=== PATIENT | female | born 1955 | race Caucasian/White ===

== ENCOUNTER 2018-05-23 20:18 | Emergency (ER) | payer MEDICARE, OTHER ==
[~2018-05-23] VITALS: Ht 172.7 cm; Wt 112.5 kg
[~2018-05-23 20:18] MED LIST: ABILIFY15 MG PO; AMBIEN10 MG PO; ASPIRIN325 M2 PO; ATORVASTATIN CA10 MG PO; BENTYL20 MG; BROMFED DM COU118 ML PO; CIPRO500 MG PO; ECOTRIN325 MG PO; EFFEXOR XR150 MG PO; FLEXERIL5 MG; GEODON20 M1 PO; HYDROCHLOROTH12.5 M1 PO; LAMICTAL100 MG PO; LAMICTAL200 MG; LORTAB 51 EA PO; METOPROLOL SUCC50 MG PO; MIRAPEX0.25 MG; NITROGLYCERIN0.4 MG SL; PANTOPRAZOLE SO40 MG PO; PEPCID20 MG PO; TIZANIDINE HCL4 MG PO; TOPIRAMATE100 MG; ULTRAM50 MG PO; VENTOLIN HFA18 GM INH; VICODIN 5-5001 EACH PO; XANAX1 MG PO; XANAX2 MG; XENICAL120 MG PO; Z.0.AMBIEN CR12.5 MG PO; Z.0.FLEXERIL5 MG PO; Z.0.METOPROLOL TART5 PO; Z.0.MIRAPEX0.25 MG PO; Z.0.PLAVIX75 MG PO; Z.0.PROMETHAZINE HC2 PO; Z.0.XANAX2 MG PO; Z.0.ZOCOR40 MG PO; ZOCOR20 MG PO
--- OUTSIDE RECORDS SUMMARY | 2018-05-23 20:21 | XMS REPORT ---
Author Author [facility] Address Unknown Phone Unavailable Care Team Providers Care Mechanical Engineering Professor Name Role Phone Unavailable Unavailable Payers Payer Name Policy Type Policy Number Effective Date Expiration Date Problems This patient has no known problems. Allergies, Adverse Reactions, Alerts Allergy Name Allergy Type Status Severity Reaction(s) Onset Date Inactive Date Treating Clinician Comments adhesive DA Active U 2017-10-18 00:00:00 hydromorphone DA Active U 2017-10-18 00:00:00 Medications This patient has no known medications.
--- OUTSIDE RECORDS SUMMARY | 2018-05-23 20:21 | XMS REPORT | Clinical Summary ---
Author Author [facility] Address Unknown Phone Unavailable Care Team Providers Care Cleat Maker Name Role Phone Omid Herbert MD PCP Allergies Comments Active Allergy Reactions Severity Noted Date Hydromorphone 06/24/2016 Medications End Date Status Medication Sig Dispensed Refills Start Date Active HYDROcodone-acetaminophen Take 1 tablet 0 (NORCO) 10-325 mg per by mouth tablet every 6 (six) hours as needed for moderate pain. Active cyclobenzaprine Take 10 mg by 0 (FLEXERIL) 10 mg tablet mouth 3 (three) times a day as needed for muscle spasms. Active Problems Problem Noted Date Acute left-sided low back pain 08/12/2016 Myositis 08/12/2016 Family History Medical History Relation Name Comments Heart failure Father Alzheimer's disease Mother Relation Name Status Comments Father Mother Social History Date Tobacco Use Types Packs/Day Years Used Current Every Day Smoker Alcohol Use Drinks/Week oz/Week Comments Yes Sex Assigned at Date Recorded Not on file Industry Job Start Date Occupation Not on file Not on file Not on file Travel End Travel History Travel Start No recent travel history available. Last Filed Vital Signs Not on file Plan of Treatment Health Maintenance Due Date Last Done Comments CERVICAL CANCER SCREENING 1977 BREAST CANCER SCREENING 2006 COLON CANCER SCREENING 2006 SHINGRIX VACCINE (1 of 2) 2006 ZOSTER VACCINE 2016 INFLUENZA VACCINE 02/03/2018 Results Not on fileafter 05/22/2017 Insurance Payer Benefit Subscriber ID Type Phone Address Plan / Group MEDICARE MEDICARE xxxxxxxxxx Medicare [place], [place] PART A AND B Advance Directives Patient has advance care planning documents on file. For more information, margi ramos contact: Óscar Pettit [phone] [place] [address]
--- NOTE | 2018-05-23 22:38 | Diagnostic Imaging Report ---
EXAM: KNEE RIGHT THREE VIEWS, AP, lateral and oblique INDICATION: Increasing pain in right knee, no history of trauma COMPARISON: None FINDINGS: BONES: No acute fractures. Superior patellar enthesophyte. JOINTS: No malalignment. Mild patellofemoral joint space narrowing. SOFT TISSUES: Small suprapatellar joint effusion. IMPRESSION: Mild degenerative changes and small suprapatellar effusion. Signed by: Dr. Marcela Jacobo M.D. on 05/23/2018 10:34 PM
== END 2018-05-23 22:57 | disposition home or self-care (01) ==
LOC: ER 20:18
DX: M25.561 Pain in right knee (principal); M17.11 Unilateral primary osteoarthritis, right knee; E78.00 Pure hypercholesterolemia, unspecified; F41.9 Anxiety disorder, unspecified; F32.9 Major depressive disorder, single episode, unspecified; Z95.5 Presence of coronary angioplasty implant and graft; F17.210 Nicotine dependence, cigarettes, uncomplicated
CPT/HCPCS: 99283

== ENCOUNTER 2020-03-10 15:58 | Emergency (ER) | payer OTHER ==
[~2020-03-10] VITALS: Ht 172.7 cm; Wt 112.5 kg
--- NOTE | 2020-03-10 17:02 | Emergency Department Note ---
History of Present Illnes History of Present Illness Chief Complaint: General Medicine Complaints History of Present Illness This is a 64 year old female Pt states she was asleep and rolled out of bed hitting her "entire right side." Pt states she hurts, "everywhere." Pt states she felt dizzy after hitting her entire right side. Pt [id number]. Ambulatory steady gait into triage. No neuro defecits at triage. Pt moving all extremities. No visible injury at triage time. Pt states she does take plavix, but has not been complaint not taking for last several days. Pt very very converse in triage. Pt states she took 2 of her [place] 10mg tab and Motrin 400mg, did not help. Historian: Patient Arrival Mode: Car Finisher Polisher Required: No Onset (how long ago): hour(s) (5 HRS AGO) Location: RIGHT SIDE OF HEAD Quality: NO PAIN BUT THINKS SHE FEELS A BUMP Radiation: Reports non-radiation Severity: mild Onset quality: sudden Progression: resolved Context: Denies recent illness Relieving factors: none Exacerbating factors: none Associated symptoms: Reports denies other symptoms Past Medical/Family History Physician Review I have reviewed the patient's past medical and family history. Any updates have been documented here. Past Medical History Recent Fever: No Clinical Suspicion of Infectio: No New/Unexplained Change in Ment: No Past Medical History: Hypertension, CAD, Anxiety, Depression, GERD, Hyp erlipedemia, DVT/PE Other Medical History: SMOKING 1PPD HIATAL HERNIA GASTRITIS GASTRIC ULCER Past Surgical History: PCI, Hernia Repair, Back Surgery Other Surgery: abdominal hernia laminectomy cardiac stents Social History Smoking Cessation: Unknown if ever smoked Counseling Performed: No Alcohol Use: None Any Illegal Drug Use: No TB Exposure/Symptoms: No Physically hurt or threatened: No Family History Family history of heart diseas: No Other Last Tetanus: 2011 Any Pre-Existing Lines (PICC,: No Review of Systems Review of Systems Constitutional: Reports no symptoms EENTM: Reports no symptoms Cardiovascular: Reports no symptoms Respiratory: Reports no symptoms Gastrointestinal: Reports no symptoms Genitourinary: Reports no symptoms Musculoskeletal: Reports as per HPI Integumentary: Reports no symptoms Neurological: Reports no symptoms Psychological: Reports no symptoms Endocrine: Reports no symptoms Hematological/Lymphatic: Reports no symptoms Physical Exam Related Data Allergies: Coded Allergies: hydromorphone HCl (Verified Allergy, Intermediate, RASH, 07/17/15) Triage Vital Signs Vital Signs Date Time Temp Pulse Resp B/P (MAP) Pulse Ox O2 Delivery O2 Flow Rate FiO2 03/10/20 16:04 97.4 90 18 145/93 99 Room Air Vital signs reviewed: Yes Physical Exam CONSTITUTIONAL Constitutional: Present well-developed, Present well-nourished HENT HENT: Present normocephalic, Present atraumatic, Present oropharynx clear/moist, Present nose normal HENT L/R: Present left ext ear normal, Present right ext ear normal EYES Eyes: Reports PERRL, Reports conjunctivae normal NECK Neck: Present ROM normal, Present supple, Present other (NO MIDLINE TENDERNESS); Absent carotid bruit PULMONARY Pulmonary: Present effort normal, Present breath sounds normal CARDIOVASCULAR Cardiovascular: Present regular rhythm, Present heart sounds normal, Present capillary refill normal, Present normal rate GASTROINTESTINAL Abdominal: Present soft, Present nontender, Present bowel sounds normal GENITOURINARY Genitourinary: Present exam deferred SKIN Skin: Present warm, Present dry MUSCULOSKELETAL Musculoskeletal: Present ROM normal NEUROLOGICAL Neurological: Present alert, Present oriented x 3, Present DTRs normal, Present no gross motor or sensory deficits; Absent cranial nerve deficit, Absent sensory deficit, Absent abnormal DTRs, Absent abnormal coordination, Absent abnormal gait, Absent weakness PSYCHOLOGICAL Psychological: Present mood/affect normal, Present judgement normal Results Laboratory Laboratory Laboratory Tests Test 03/10/20 16:10 Lab results reviewed: Yes Imaging Imaging results reviewed: Yes Assessment & Plan Medical Decision Making MDM ROLLED OUT OF BED, TAKES PLAVIX - CHECK CT BRAIN R/O CEREBRAL BLEEDING Reassessment Reassessment DC HOME, HEAD SHEET PRECAUTIONS, F/U PCP Assessment & Plan Final Impression: (1) Fall Depart Disposition: HOME, SELF-CARE Last Vital Signs Date Time Temp Pulse Resp B/P (MAP) Pulse Ox O2 Delivery O2 Flow Rate FiO2 03/10/20 16:26 98.6 91 17 145/63 97 Room Air Home Meds Reported Medications Atorvastatin Calcium (ATORVASTATIN CALCIUM) 10 Mg Tablet, 10 MG PO 2100, #30 TAB 07/17/15 Ciprofloxacin Hcl (CIPRO) 500 Mg Tablet, 500 MG PO Q12H, #30 TAB 07/17/15 D-Methorphan Hb/P-Epd Hcl/Bpm (BROMFED DM COUGH SYRUP) 118 Ml Syrup, 118 MG PO Q6H 1/12/16 Albuterol Sulfate (VENTOLIN HFA) 18 Gm Hfa.aer.ad, 18 INH PRN 07/17/15 Ziprasidone (GEODON) 20 Mg Powd, 20 MG PO HS, VIAL 04/18/14 Pantoprazole Sodium* (PROTONIX) 40 Mg Tablet.dr, 40 MG PO DAILY 09/28/13 Nitroglycerin (NITROGLYCERIN) 0.4 Mg Tab.subl, 0.4 MG SL UD PRN for PAIN 09/25/13 Aspirin (ECOTRIN) 325 Mg Tablet.dr, 325 MG PO DAILY 09/25/13 Tramadol Hcl (ULTRAM) 50 Mg Tablet, 50 MG PO Q6 PRN for PAIN 09/25/13 Famotidine (PEPCID) 20 Mg Tablet, 20 MG PO BID, #60 07/15/13 Zolpidem Tartrate (AMBIEN) 10 Mg Tablet, 10 MG PO HS 05/16/12 Hydrocodone Bit/Acetaminophen* (VICODIN 5-500 TABLET*) 1 Each Tablet, 5-500 MG PO Q4-6H PRN for PAIN 05/16/12 Metoprolol Succinate (METOPROLOL SUCCINATE) 50 Mg Tab.er.24h, 50 MG PO BID 05/16/12 Promethazine Hcl (Promethazine Hcl) 25 Mg Tablet, 25 MG PO BID PRN for VOMITING 04/21/12 Pramipexole Di-Hcl (Mirapex) 0.25 Mg Tablet, 0.25 MG PO HS 04/21/12 Alprazolam (Xanax) 2 Mg Tablet, 2 MG PO BID 04/21/12 Cyclobenzaprine Hcl (Flexeril) 5 Mg Tablet, 5 MG PO HS PRN for INSOMNIA 04/21/12 Clopidogrel Bisulfate (Plavix) 75 Mg Tablet, 75 MG PO DAILY 04/21/12 ABIGAIL ARMANDO MD Mar 10, 2020 17:02
[2020-03-10 17:03] LABS: CLARITY,URINE HAZY (CLEAR); COLOR,URINE YELLOW (YELLOW)
[2020-03-10 17:04] LABS: BACTERIA,URINE MANY /HPF; BILIRUBIN,URINE NEGATIVE (NEGATIVE); KETONES,URINE NEGATIVE (NEGATIVE); LEUKOCYTE ESTERASE ,URINE NEGATIVE (NEGATIVE); NITRITE,URINE NEGATIVE (NEGATIVE); PROTEIN,URINE DIPSTICK NEGATIVE (NEGATIVE); URINE UROBILINOGEN 0.2 mg/dL (0.2 - 1)
[2020-03-10 17:05] LABS: EPITHELIAL CELLS,URINE MANY /LPF; YEAST,URINE MODERATE
--- NOTE | 2020-03-10 17:39 | Diagnostic Imaging Report ---
Examination: CT BRAIN WO CONTRAST History:^N ^fall hit rt side ^[id number] ^[id number] Comparison studies:Head CT performed December 07, 2013. Technique: Axial images were obtained from the skull base to the vertex. Coronal and sagittal images reconstructed from the axial data. Dose modulation, iterative reconstruction, and/or weight based adjustment of the mA/kV was utilized to reduce the radiation dose to as low as reasonably achievable. Intravenous contrast: None Findings: Scalp: No abnormalities. Bones: No fractures, blastic or lytic lesions. Brain sulci: Appropriate for age. Ventricles: Normal in size and configuration. No hydrocephalus. Extra-axial space: No abnormalities. Parenchyma: No masses, hemorrhage, or acute or chronic cortical based vascular insults.. Sellar/suprasellar region: No abnormalities. Craniocervical junction: Patent foramen magnum. No Chiari one malformation. Incidental findings: None. Impression: No new or acute intracranial abnormalities when compared to prior head CT performed in 2013. Signed by: Dr. Emilee Ivey M.D. on 03/10/2020 5:36 PM
--- NOTE | 2020-03-10 17:45 | Diagnostic Imaging Report ---
Examination: CT CERVICAL SPINE WO HISTORY:Fall with neck injury. ^N ^fall hit rt side ^[id number] ^[id number] COMPARISON:Cervical spine MRI performed July 04, 2016. TECHNIQUE: Multidetector helical axial images were obtained without contrast from the foramen magnum to T1. Coronal and sagittal reformatted images were done. Bone and soft tissue windows were evaluated. Dose modulation, iterative reconstruction, and/or weight based adjustment of the mA/kV was utilized to reduce the radiation dose to as low as reasonably achievable. FINDINGS: Alignment:Normal alignment and lordosis. Vertebrae: Normal height and density. No acute fracture, infection or neoplasm. Disc space heights: Normal height. Caliber of spinal canal: Developmentally normal. Posterior fossa and craniocervical junction: Foramen magnum patent. No Chiari 1 malformation. Soft tissues: No abnormality. Degenerative changes: Anterior bridging osteophytes from C4 through C7. Mild degenerative spinal canal stenosis at C3-C4, C4-C5 and C6-7 and moderate degenerative spinal canal stenosis C5-C6 are better seen on prior cervical spine MRI performed July 04, 2016. Mild right and severe left neural foraminal narrowing at the due to uncovertebral and facet arthropathy at C3-C4. Mild bilateral neural foraminal narrowing at C4-C5 due to uncovertebral arthropathy. Severe bilateral neural foraminal narrowing at C5-C6 and C6-C7 due to diffuse disc osteophyte complex and bilateral uncovertebral arthropathy. Visualized lung apices: No abnormalities. IMPRESSION: 1. No acute abnormalities. 2. Degenerative changes of the cervical spine which are better appreciated on prior cervical spine MRI performed 2015.. Signed by: Dr. Emilee Ivey M.D. on 03/10/2020 5:41 PM
== END 2020-03-10 18:22 | disposition home or self-care (01) ==
LOC: ER 16:05
DX: S00.83XA Contusion of other part of head, initial encounter (principal); W06.XXXA Fall from bed, initial encounter; Y93.84 Activity, sleeping; Y92.003 Bedroom of unspecified non-institutional (private) residence as the place of occurrence of the external cause; I10 Essential (primary) hypertension; I25.10 Atherosclerotic heart disease of native coronary artery without angina pectoris; F41.9 Anxiety disorder, unspecified; E78.5 Hyperlipidemia, unspecified; K21.9 Gastro-esophageal reflux disease without esophagitis; Z79.01 Long term (current) use of anticoagulants; F17.210 Nicotine dependence, cigarettes, uncomplicated
CPT/HCPCS: 70450; 72125; 81001; 99284

== ENCOUNTER 2022-05-21 19:48 | Emergency (ER) | payer MEDICARE ==
[~2022-05-21] VITALS: Ht 172.7 cm; Wt 112.5 kg
[~2022-05-21 19:48] MED LIST changes: +AMOXICILLIN500 MG PO
[2022-05-21 20:28] LABS: BASOPHILS # (AUTO) 0.1 (0.0-0.1); BASOPHILS % 0.8 % (0.0-1.0); EOSINOPHILS # (AUTO) 0.3 (0.0-0.4); EOSINOPHILS % 4.2 % (0.0-6.0); HEMATOCRIT 33.5 % (34.2-44.1); HEMOGLOBIN 10.3 g/dL (12.0-16.0); LYMPHOCYTES # (AUTO) 2.1 (1.0-3.2); LYMPHOCYTES % 34.5 % (18.0-39.1); MEAN CORPUSCULAR HEMOGLOBIN 25.2 pg (28-32); MEAN CORPUSCULAR HGB CONC 30.7 g/dL (31-35); MEAN CORPUSCULAR VOLUME 82.1 fL (81-99); MONOCYTES # (AUTO) 0.5 (0.2-0.8); MONOCYTES % 8.5 % (4.4-11.3); NEUTROPHILS # (AUTO) 3.1 (2.1-6.9); NEUTROPHILS % 51.7 % (38.7-80.0); PLATELET COUNT 218 x10e3/uL (140-360); RED BLOOD COUNT 4.08 x10e6/uL (3.6-5.1); RED CELL DISTRIBUTION WIDTH 13.4 % (11.7-14.4)
[2022-05-21 20:46] LABS: ALBUMIN 3.7 g/dL (3.5-5.0); ANION GAP 13.9 mmol/L (8-16); CALCIUM 9.1 mg/dL (8.4-10.2); CREATININE, SERUM 0.96 mg/dL (0.57-1.11); POTASSIUM 3.9 mmol/L (3.5-5.1)
[2022-05-21 21:38] VITALS: BP 113/82
[2022-05-21] MEDS ORDERED: ACETAMINOPHEN 325 MG TAB PO ONE (21:45)
== END 2022-05-21 21:46 | disposition home or self-care (01) ==
LOC: ER 19:54
DX: E87.1 Hypo-osmolality and hyponatremia (principal); I10 Essential (primary) hypertension; E78.5 Hyperlipidemia, unspecified; I25.10 Atherosclerotic heart disease of native coronary artery without angina pectoris; Z86.718 Personal history of other venous thrombosis and embolism; F17.210 Nicotine dependence, cigarettes, uncomplicated
CPT/HCPCS: 36415; 80053; 85025; 99283

== ENCOUNTER 2024-04-19 15:40 | Emergency (ER) | payer MEDICARE ==
[~2024-04-19] VITALS: Ht 172.7 cm; Wt 84.8 kg
[~2024-04-19 15:40] MED LIST changes: +AMOX TR-K CLV1 EAC2 PO
[2024-04-19 16:17] VITALS: RESP 16; TEMP 97.4
[2024-04-19 18:09] LABS: BASOPHILS % 0.4 % (0.0-1.0); EOSINOPHILS # (AUTO) 0.3 (0.0-0.4); EOSINOPHILS % 2.7 % (0.0-6.0); HEMATOCRIT 28.6 % (34.2-44.1); LYMPHOCYTES % 20.1 % (18.0-39.1); MEAN CORPUSCULAR HEMOGLOBIN 26.2 pg (28-32); MEAN CORPUSCULAR HGB CONC 31.5 g/dL (31-35); MEAN CORPUSCULAR VOLUME 83.1 fL (81-99); MONOCYTES # (AUTO) 0.9 (0.2-0.8); MONOCYTES % 8.8 % (4.4-11.3); NEUTROPHILS # (AUTO) 6.8 (2.1-6.9); NEUTROPHILS % 67.7 % (38.7-80.0); PLATELET COUNT 195 x10e3/uL (140-360); RED BLOOD COUNT 3.44 x10e6/uL (3.6-5.1); RED CELL DISTRIBUTION WIDTH 13.5 % (11.7-14.4); WHITE BLOOD COUNT 9.99 x10e3/uL (4.8-10.8)
[2024-04-19] MEDS: ONDANSETRON HCL INJ 2MG/ML 2ML 2 MG/ML VIAL IV STA (18:09)
[2024-04-19] MEDS: SODIUM CHLORIDE 0.9% 1000ML 1,000 ML IV STA (18:09)
[2024-04-19 18:17] LABS: INR 0.92; PROTHROMBIN TIME 12.8 seconds (11.9-14.5)
[2024-04-19 18:18] LABS: PARTIAL THROMBOPLASTIN TIME 29.4 seconds (23.8-35.5)
[2024-04-19 18:20] LABS: ALBUMIN 3.5 g/dL (3.5-5.0); ALBUMIN/GLOBULIN RATIO 1.1 (0.8-2.0); ALKALINE PHOSPHATASE 67 IU/L (40-150); ANION GAP 13.7 mmol/L (8-16); BILIRUBIN,TOTAL 0.4 mg/dL (0.2-1.2); BLOOD UREA NITROGEN 18 mg/dL (7-26); BUN/CREATININE RATIO 10 (6-25); CALCIUM 9.4 mg/dL (8.4-10.2); CARBON DIOXIDE 23 mmol/L (22-29); CHLORIDE 95 mmol/L (98-107); CREATININE, SERUM 1.73 mg/dL (0.57-1.11); EST GLOMERULAR FILTRATION RATE 32 ML/MIN (>=60); GLUCOSE 87 mg/dL (74-118); POTASSIUM 4.7 mmol/L (3.5-5.1); SODIUM 127 mmol/L (136-145); TOTAL PROTEIN 6.8 g/dL (6.5-8.1)
[2024-04-19 18:24] LABS: ALANINE AMINOTRANSFERASE < 6 IU/L (0-55)
[2024-04-19] MEDS ORDERED: IOPAMIDOL 370 MG/ML 100 ML INFUS..BTL INJ ONE (18:33)
[2024-04-19 19:59] LABS: CLARITY,URINE SL CLOUDY (CLEAR); COLOR,URINE YELLOW (YELLOW); LEUKOCYTE ESTERASE ,URINE MODERATE (NEGATIVE); NITRITE,URINE POSITIVE (NEGATIVE); URINE UROBILINOGEN 0.2 mg/dL (0.2 - 1)
[2024-04-19 20:00] LABS: PH,URINE 6 (5 - 7); PROTEIN,URINE DIPSTICK TRACE (NEGATIVE)
[2024-04-19 20:01] LABS: BILIRUBIN,URINE NEGATIVE (NEGATIVE); GLUCOSE, URINE NEGATIVE (NEGATIVE); KETONES,URINE NEGATIVE (NEGATIVE)
[2024-04-19 20:13] LABS: AMORPHOUS SEDIMENT,URINE MANY (FEW); BACTERIA,URINE MODERATE /HPF; EPITHELIAL CELLS,URINE FEW /LPF; TRANSITIONAL EPI CELLS,URINE MODERATE
[2024-04-19 20:15] VITALS: PULSE 57
[2024-04-19 20:54] VITALS: BP 162/79; O2SAT 100
== END 2024-04-19 20:59 | disposition home or self-care (01) ==
LOC: ER 16:49
DX: R10.32 Left lower quadrant pain (principal); I10 Essential (primary) hypertension; I50.9 Heart failure, unspecified; I25.10 Atherosclerotic heart disease of native coronary artery without angina pectoris; E78.5 Hyperlipidemia, unspecified; K21.9 Gastro-esophageal reflux disease without esophagitis; F41.9 Anxiety disorder, unspecified; I25.2 Old myocardial infarction; Z87.19 Personal history of other diseases of the digestive system; F17.210 Nicotine dependence, cigarettes, uncomplicated
CPT/HCPCS: 36415; 74177; 80053; 81001; 85025; 85610; 85730; 99284; J2405; J2470; J7030; Q9967